=== PATIENT | female | born 1945 | race Caucasian/White ===

== ENCOUNTER 2017-02-08 12:18 | Emergency (ER) | payer MEDICARE, OTHER ==
[2017-02-08 12:28] VITALS: BP 155/79
[2017-02-08] MEDS ORDERED: Nitroglycerin 0.4 MG Tab.SL SL ONE (12:38)
[2017-02-08 13:02] LABS: CHLORIDE,CL 106 mEq/L (98-106); SODIUM,NA 141 mEq/L (136-145)
--- NOTE | 2017-02-08 13:11 | EDM.PDOC ---
ED HISTORY OF PRESENT ILLNESS - General Chief Complaint: Chest Pain Stated Complaint: CP Time Seen by Provider: 02/08/17 12:55 Source of Information: Reports: Patient History Limitations: Reports: No limitations - History of Present Illness INITIAL COMMENTS - FREE TEXT/NARRATIVE: Was at the dentist and was fine when she got there. During the hour that she was there she developed some pain in the left chest that initially only occurred when she took a deep breathe "at the top of the breathe". Now it is more of a constant ache with it worse when she takes that breathe. No SOB with it. Does have some asthma and has a chronic mild cough without production. No edema noted. No G symptoms with it. Symptom Onset Date: 02/08/17 Symptom Onset Time: 11:50 Severity: mild Location, General: Reports: chest Quality: Reports: Dull Worsens with: Reports: Other (Deep breath ) Associated Symptoms (General): Reports: chest pain - Related Data Allergies/ADRs: Allergies Allergy/AdvReac Type Severity Reaction Status Date / Time Sulfa (Sulfonamide Allergy Anaphylactic Verified 02/08/17 12:31 Antibiotics) Shock Home Meds: Home Meds Aspirin 325 mg PO ASDIRECTED PRN 02/08/17 [History] Past Medical History Cardiovascular History: Reports: High cholesterol - Past Surgical History HEENT Surgical History: Reports: Other (see below) Other HEENT Surgeries/Procedures: inner ear surgery surgery x2; 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 GI Surgical History: Reports: Hernia repair/other Female Surgical History: Reports: Hysterectomy Musculoskeletal Surgical History: Reports: Other (see below) Other Musculoskeletal Surgeries/Procedures:: knee surgery s/p skiing accident Social & Family History - Family History Family Medical History: Noncontributory - Tobacco Use Smoking Status *Q: Never Smoker - Caffeine Use Caffeine Use: Reports: Coffee - Recreational Drug Use Recreational Drug Use: No ED ROS GENERAL - Review of Systems Review Of Systems: See Below Constitutional: Denies: fever, chills HEENT: Reports: No symptoms Respiratory: Reports: Other (see HPI) Cardiovascular: Reports: Chest pain GI/Abdominal: Reports: No symptoms : Reports: no symptoms Musculoskeletal: Reports: back pain (strained back last week) Skin: Reports: no symptoms Neurological: Reports: No Symptoms Psychiatric: Reports: No symptoms ED EXAM, GENERAL - Physical Exam Exam: See Below Exam Limited By: No limitations General Appearance: alert, no apparent distress Ears: normal external exam, normal canal, normal TMs Nose: normal inspection Throat/Mouth: Normal inspection, Normal oropharynx, No airway compromise Head: atraumatic, normocephalic Neck: normal inspection, supple, non-tender, full range of motion Respiratory/Chest: no respiratory distress, lungs clear, normal breath sounds Cardiovascular: normal peripheral pulses, regular rate, rhythm, no edema, no murmur GI/Abdominal: normal bowel sounds, soft, non tender Back Exam: normal inspection, full range of motion Extremities: normal inspection, normal range of motion, non-tender, no pedal edema, normal capillary refill Neurological: alert, oriented, normal cognition Skin Exam: Warm, Dry, Intact Course - Vital Signs Last Recorded V/S: Last Vital Signs Temp 98.7 F 02/08/17 12:25 Pulse 95 02/08/17 12:25 Resp 20 02/08/17 12:25 BP 155/79 H 02/08/17 13:00 Pulse Ox 95 02/08/17 12:25 - Orders/Labs/Meds Orders: Active Orders 24 hr Category Date Time Status Chest 2V [CR] Stat Exams 02/08/17 12:28 Taken BASIC METABOLIC PANEL,BMP [CHEM] Stat Lab 02/08/17 12:35 Received CREATINE KINASE,CK [CHEM] Stat Lab 02/08/17 12:35 Received D Dimer [D-DIMER QUANTITATIVE] [COAG] Stat Lab 02/08/17 12:35 Received INR,PT,PROTHROMBIN TIME [COAG] Stat Lab 02/08/17 12:35 Received LACTATE DEHYDROGENASE,LDH [CHEM] Stat Lab 02/08/17 12:35 Received PTT,PARTIAL THROMBOPLSTIN TIME [COAG] Stat Lab 02/08/17 12:35 Received TROPONIN I [CHEM] Stat Lab 02/08/17 12:35 Received Labs: Laboratory Tests 02/08/17 Range/Units 12:35 WBC 6.5 (5.0-10.0) 10^3/uL RBC 4.53 (4.00-5.50) 10^6/uL Hgb 14.3 (12.0-16.0) g/dL Hct 42.2 (37.0-47.0) % MCV 93.2 (82.0-94.0) fL MCH 31.6 (27.0-32.0) pg MCHC 33.9 (33.0-38.0) g/dL RDW Coeff of Ang 12.7 (11.0-15.0) % Plt Count 183 (150-400) 10^3/uL Neut % (Auto) 45.5 (35-85) % Lymph % (Auto) 39.8 (10-55) % [place] % (Auto) 11.7 (0-16) % Eos % (Auto) 2.2 (0-5) % Baso % (Auto) 0.8 (0-3) % Neut # (Auto) 2.96 (1.80-7.00) 10^3/uL Lymph # (Auto) 2.59 (1.00-4.80) 10^3/uL [place] # (Auto) 0.76 (0.00-0.80) 10^3/uL Eos # (Auto) 0.14 (0.00-0.45) 10^3/uL Baso # (Auto) 0.05 10^3/uL Meds: Medications Discontinued Medications Generic Name Dose Route Start Last Admin Trade Name Freq PRN Reason Stop Dose Admin Nitroglycerin 0.4 mg 02/08/17 12:38 02/08/17 13:00 Nitrostat SL 02/08/17 12:39 Not Given ONETIME ONE Departure - Departure Time of Disposition: 13:22 Disposition: Home, Self-Care 01 Condition: good Clinical Impression: Asthma Qualifiers: Asthma severity: mild intermittent Asthma complication type: uncomplicated Qualified Code(s): J45.20 - Mild intermittent asthma, uncomplicated Forms: ED Department Discharge Additional Instructions: Recheck in clinic or ER if any further concerns or changes occur - Problem List & Annotations (1) Asthma SNOMED Code(s): 776616097 Code(s): J45.909 - UNSPECIFIED ASTHMA, UNCOMPLICATED Status: Acute Current Visit: Yes Qualifiers: Asthma severity: mild intermittent Asthma complication type: uncomplicated Qualified Code(s): J45.20 - Mild intermittent asthma, uncomplicated - Problem List Review Problem List Initiated/Reviewed/Updated: Yes
== END 2017-02-08 13:30 | disposition home or self-care (01) ==
LOC: CC.ED 12:18
DX: J45.20 Mild intermittent asthma, uncomplicated (principal); E78.00 Pure hypercholesterolemia, unspecified; Z90.710 Acquired absence of both cervix and uterus; Z88.2 Allergy status to sulfonamides
CPT/HCPCS: 36415; 71020; 80048; 82550; 83615; 84484; 85025; 85379; 85610; 85730; 93005; 93010; 99283; 99285

== ENCOUNTER → 2019-03-15 | Day surgery (SDC) | payer MEDICARE, OTHER ==
[~2019-03-15] MED LIST: Lactated Ringers 1,000 ML IV SCH; Propofol 200 MG/20 ML SDV IV ONE
[2019-03-15 10:57] VITALS: BP 150/51
--- NOTE | 2019-03-18 09:06 | OR ---
DATE OF OPERATION: 03/15/2019 PREOPERATIVE DIAGNOSIS: 1. DYSPEPSIA, CHRONIC GASTROESOPHAGEAL REFLUX DISEASE. 2. ABDOMINAL PAIN WITH ALTERED BOWEL HABITS. POSTOPERATIVE DIAGNOSIS: 1. GASTRITIS, DUODENITIS. 2. SPONTANEOUS GASTROESOPHAGEAL REFLUX DISEASE. 3. CECAL COLITIS. 4. PANDIVERTICULOSIS, MODERATE TO SEVERE. SURGEON: Jorge Rose MD PROCEDURE: 1. ESOPHAGOGASTRODUODENOSCOPY WITH BIOPSIES X6, VAMSI. 2. FULL LENGTH COLONOSCOPY WITH BIOPSIES X3. ANESTHESIA: MAC via PRACTICE MANAGEMENT CONSULTANT. COMPLICATIONS: None. SPECIMEN: 1. Duodenal biopsy x2. 2. Antral biopsy x2. 3. Antral VAMSI. 4. Fundal biopsy x1. 5. EG junction biopsy x1. 6. Ileocecal valve biopsy x2. 7. Terminal ileal biopsy x1. FINDINGS: 1. Full-length esophagogastroduodenoscopy. 2. Moderate and chronic-appearing antral gastritis, duodenitis. 3. Heterotopic gastric tissue, duodenal bulb. 4. Gastroesophageal reflux disease with no obvious distal esophagitis and no Guadarrama's changes. 5. Full-length colonoscopy. 6. Inflammatory changes in ileocecal valve, questionable etiology. 7. Pandiverticulosis, moderate to severe. RECOMMENDATIONS: Medical followup with Dr. Horton, routine colonoscopy in 10 years. INDICATIONS: Ms. Victoria has been having some ongoing issues with dyspepsia and reflux. She also has some left lower quadrant pain and altered bowel habits. Dr. Horton sent her for diagnostic esophagogastroduodenoscopy and colonoscopy. DESCRIPTION OF PROCEDURE: The patient was prepped and draped, placed in the left lateral decubitus position. A lubricated Olympus gastroscope was inserted over a bit, advanced to cricopharyngeus area, and easily intubated in the esophagus. The esophageal lining was benign in its entire course. The Z-line was crisp and sharp. Right at 40 cm, there is some spontaneous reflux. A little bit of inflammatory change at the EG junction around 7 o'clock position. We did do a biopsy of that but no gross or obvious esophagitis, Guadarrama's changes etc. Scope was advanced into the stomach through the pylorus into the second portion of the duodenum. This was benign. The duodenal bulb was inflamed consistent with duodenitis. Biopsy was taken along with a second biopsy at an area of heterotopic gastric tissue. Scope was brought back into the stomach and retroflexed. The upper fundus and cardia were for the most part benign. There is a little bit of inflammatory change to one area of the fundus consistent with maybe some mild gastritis. We did not do a biopsy of that. The patient does have chronic appearing gastritis of the antrum and two biopsies of that along with a CLOtest were obtained without complication. No other polyps, masses, or lesions were seen. Air was suctioned from the stomach. The scope was removed without complication. A lubricated Olympus colonoscope was inserted and easily advanced to the cecum. Right at the cecum along the valve, the patient does have inflammatory changes, unclear etiology. We did intubate into the terminal ileum, did a biopsy of that. Three separate biopsies of the valve were taken as well. The rest of the cecal pouch was benign. Upon withdrawal of the scope, the patient has gonsalves diverticulosis, most severe in the sigmoid and rectosigmoid junction as expected but present all over in the right colon. There were no other inflammatory changes. Throughout the rest of the colon, I could find no polyps, masses, ulcerations, or bleeding sites. No vascular abnormalities or signs of colitis. The rectal vault was benign. Retroflexion of the scope in the rectum showed no anal lesions. Air was suctioned. Scope was removed without complication. CARMEN/PETER /[id number]
== END ==
LOC: CC.SDS 08:35
PROVIDERS: ATTEND Family Medicine
DX: K21.0 Gastro-esophageal reflux disease with esophagitis (principal); K31.89 Other diseases of stomach and duodenum; K29.50 Unspecified chronic gastritis without bleeding; K29.80 Duodenitis without bleeding; K57.30 Diverticulosis of large intestine without perforation or abscess without bleeding; K50.90 Crohn's disease, unspecified, without complications; I10 Essential (primary) hypertension; E78.5 Hyperlipidemia, unspecified; J45.909 Unspecified asthma, uncomplicated; E55.9 Vitamin D deficiency, unspecified; K42.9 Umbilical hernia without obstruction or gangrene; E04.1 Nontoxic single thyroid nodule; M19.90 Unspecified osteoarthritis, unspecified site; Z80.0 Family history of malignant neoplasm of digestive organs; Z88.2 Allergy status to sulfonamides; Z79.899 Other long term (current) drug therapy
CPT/HCPCS: 87081; J2704; J7120

== ENCOUNTER → 2019-05-28 | Day surgery (SDC) | payer MEDICARE, OTHER ==
[~2019-05-28] MED LIST changes: -Lactated Ringers 1,000 ML IV SCH; +Lidocaine 1% 20 ML MDV ONE; -Propofol 200 MG/20 ML SDV IV ONE
[2019-05-28 12:34] VITALS: BP 143/51
== END ==
LOC: CC.SDS 10:18
PROVIDERS: ATTEND Family Medicine
DX: I83.12 Varicose veins of left lower extremity with inflammation (principal); I83.812 Varicose veins of left lower extremity with pain
CPT/HCPCS: 36475

== ENCOUNTER 2020-08-29 17:07 | Emergency (ER) | payer MEDICARE, OTHER ==
[2020-08-29] MEDS ORDERED: Lactated Ringers 1,000 ML IV ONE (17:17)
--- NOTE | 2020-08-29 17:27 | EDM.PDOC ---
ED HPI GENERAL MEDICAL PROBLEM - General Chief Complaint: General Stated Complaint: COVID+. Near Syncope Time Seen by Provider: 08/29/20 17:16 Source of Information: Reports: Patient History Limitations: Reports: No Limitations - History of Present Illness INITIAL COMMENTS - FREE TEXT/NARRATIVE: This patient is a 74 year old female that presents to the ER. Patient reports that about 8 days ago she started having cough, drainage, congestion, headache, fever, body aches, shortness of breath. She reports on the she was tested in [place] and diagnosed with COVID. She reports that she was not seen by her PCP, was prescribed abx and steroids for COVID and her cough. Patient reports that she has been feeling generally weak and generally not that well. She reports feelign pain/congested in her chest with coughing. She reports that today at about 2pm she felt lightheaded with standing and nearly passed out. Patient reports then again just before coming to the hospital going to the bathroom, urinated, then when getting off the toilet, feeling lightheaded, and passed out. She reports her was unable to open the door to the bathroom because she was laying on the floor. Onset: Today Onset Date: 08/21/20 Duration: Other (Today syncope) Severity: Moderate Improves with: Reports: None Worsens with: Reports: None Associated Symptoms: Reports: Cough, cough w sputum, Fever/Chills, Headaches, Loss of Appetite, Malaise, Shortness of Breath, Syncope, Weakness (general). Denies: Confusion, Chest Pain, Diaphoresis, Nausea/Vomiting, Rash, Seizure - Related Data Allergies Allergy/AdvReac Type Severity Reaction Status Date / Time Sulfa (Sulfonamide Allergy Anaphylactic Verified 08/29/20 17:14 Antibiotics) Shock Home Meds: Home Meds Cholecalciferol (Vitamin D3) [Vitamin D3] 6,000 unit PO DAILY 03/12/19 [History] Magnesium Oxide 500 mg PO DAILY 03/12/19 [History] Multivitamin [Multivitamins] 1 each PO DAILY 03/12/19 [History] Selenium 200 mcg PO DAILY 03/12/19 [History] Past Medical History Cardiovascular History: Reports: High Cholesterol - Past Surgical History HEENT Surgical History: Reports: Other (See Below) Other HEENT Surgeries/Procedures: inner ear surgery surgery x2; 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 GI Surgical History: Reports: Hernia Repair/Other Female Surgical History: Reports: Hysterectomy Musculoskeletal Surgical History: Reports: Other (See Below) Other Musculoskeletal Surgeries/Procedures:: knee surgery s/p skiing accident Social & Family History - Family History Family Medical History: No Pertinent Family History - Tobacco Use Tobacco Use Status *Q: Never Tobacco User Second Hand Smoke Exposure: No - Caffeine Use Caffeine Use: Reports: None - Recreational Drug Use Recreational Drug Use: No ED ROS GENERAL - Review of Systems Review Of Systems: See Below Constitutional: Reports: Fever, Chills, Malaise, Weakness (general), Fatigue HEENT: Reports: Rhinitis, Sinus Problem Respiratory: Reports: Shortness of Breath, Pleuritic Chest Pain, Cough, Sputum Cardiovascular: Reports: Lightheadedness, Syncope. Denies: Chest Pain, Dyspnea on Exertion, Edema, Palpitations Endocrine: Reports: No Symptoms GI/Abdominal: Reports: Diarrhea. Denies: Abdominal Pain, Nausea, Vomiting : Reports: No Symptoms Musculoskeletal: Reports: Neck Pain Skin: Reports: No Symptoms Neurological: Reports: Dizziness, Headache, Syncope. Denies: Trouble Speaking, Difficulty Walking, Change in Speech, Gait Disturbance Psychiatric: Reports: No Symptoms Hematologic/Lymphatic: Reports: No Symptoms Immunologic: Reports: No Symptoms ED EXAM, GENERAL - Physical Exam Exam: See Below Exam Limited By: No Limitations General Appearance: Alert, WD/WN, No Apparent Distress Eye Exam: Bilateral Eye: EOMI, Normal Inspection, PERRL Ears: Normal External Exam, Normal Canal, Hearing Grossly Normal, Normal TMs Ear Exam: Bilateral Ear: Auricle Normal, Canal Normal, TM normal Nose: Normal Inspection, Normal Mucosa, No Blood Throat/Mouth: Normal Inspection, Normal Lips, Normal Teeth, Normal Gums, Normal Oropharynx, Normal Voice, No Airway Compromise Head: Atraumatic, Normocephalic Neck: Normal Inspection, Supple, Full Range of Motion, Tender Lateral (bilaterally. ), Other (No step offs. ). No: Tender Midline Respiratory/Chest: No Respiratory Distress, Lungs Clear, Normal Breath Sounds, No Accessory Muscle Use, Chest Non-Tender. No: Respiratory Distress, Decreased Breath Sounds, Crackles, Rales, Rhonchi, Wheezing Cardiovascular: Normal Peripheral Pulses, Regular Rate, Rhythm, No Edema, No Gallop, No JVD, No Murmur, No Rub, Other (Lightheaded with sitting up positional change during exam. ) Peripheral Pulses: 2+: Radial (L), Radial (R), Posterior Tibial (L), Posterior Tibial (R), Dorsalis Pedis (L), Dorsalis Pedis (R) GI/Abdominal: Soft, Non-Tender, No Organomegaly, No Distention, No Mass, Pelvis Stable Back Exam: Normal Inspection, Full Range of Motion. No: CVA Tenderness (L), CVA Tenderness (R), Decreased Range of Motion, Muscle Spasm, Paraspinal Tenderness, Vertebral Tenderness Extremities: Normal Inspection, Normal Range of Motion, Non-Tender, No Pedal Edema, Normal Capillary Refill Neurological: Alert, Oriented, CN II-XII Intact, Normal Cognition, Normal Gait, No Motor/Sensory Deficits, Other (STROKE SCORE 0. GCS 15. ) Psychiatric: Normal Affect, Normal Mood Skin Exam: Warm, Dry, Intact, Normal Color, No Rash Lymphatic: No Adenopathy Course - Vital Signs Last Recorded V/S: Last Vital Signs Temp 96.9 F 08/29/20 17:07 Pulse 85 08/29/20 18:36 Resp 18 08/29/20 18:36 BP 143/81 H 08/29/20 18:36 Pulse Ox 95 08/29/20 18:36 - Orders/Labs/Meds Orders: Active Orders 24 hr Category Date Time Status Orthostatic Vital Signs [RC] ASDIRECTED Care 08/29/20 18:08 Active Cervical Spine wo Cont [CT] Stat Exams 08/29/20 17:16 Taken Chest 2V [CR] Stat Exams 08/29/20 17:16 Taken Head wo Cont [CT] Stat Exams 08/29/20 17:16 Taken CULTURE BLOOD [BC] Stat Lab 08/29/20 17:26 Received CULTURE BLOOD [BC] Stat Lab 08/29/20 17:30 Received Blood Culture x2 Reflex Set [OM.PC] Stat Oth 08/29/20 17:18 Ordered Labs: Laboratory Tests 08/29/20 08/29/20 08/29/20 Range/Units 17:26 17:26 17:26 WBC 8.2 (5.0-10.0) 10^3/uL RBC 4.70 (4.00-5.50) 10^6/uL Hgb 14.5 (12.0-16.0) g/dL Hct 43.3 (37.0-47.0) % MCV 92.1 (82.0-94.0) fL MCH 30.9 (27.0-32.0) pg MCHC 33.5 (33.0-38.0) g/dL RDW Coeff of Ang 13.1 (11.0-15.0) % Plt Count 146 L (150-400) 10^3/uL Neut % (Auto) 77.8 (35-85) % Lymph % (Auto) 11.9 (10-55) % [place] % (Auto) 10.2 (0-16) % Eos % (Auto) 0 (0-5) % Baso % (Auto) 0.1 (0-3) % Neut # (Auto) 6.39 (1.80-7.00) 10^3/uL Lymph # (Auto) 0.98 L (1.00-4.80) 10^3/uL [place] # (Auto) 0.84 H (0.00-0.80) 10^3/uL Eos # (Auto) 0.00 (0.00-0.45) 10^3/uL Baso # (Auto) 0.01 10^3/uL PT 10.6 (9.7-12.3) SEC INR 1.05 (0.92-1.18) APTT 25.2 (23.2-32.3) SEC D-Dimer, Quantitative 1.94 H (0.00-0.50) Sodium 130 L (136-145) mEq/L Potassium 3.9 (3.5-5.0) mEq/L Chloride 97 L (98-106) mEq/L Carbon Dioxide 24 (21-32) mmol/L BUN 26 H (7-18) mg/dL Creatinine 1.1 H (0.6-1.0) mg/dL Est Cr Clr Drug Dosing 43.63 mL/min Estimated GFR (MDRD) 49 L (>=60) mL/min Glucose 124 H (75-99) mg/dL Lactic Acid (0.4-2.0) mmol/L Calcium 8.0 L (8.4-10.1) mg/dL Total Bilirubin 0.6 (0.0-1.0) mg/dL AST 30 (15-37) U/L ALT 37 (12-78) U/L Alkaline Phosphatase 36 L (46-116) U/L Lactate Dehydrogenase 223 H (100-190) U/L Creatine Kinase 68 (21-215) U/L Troponin I < 0.017 (0.00-0.06) ng/mL C-Reactive Protein 4.4 H (0.2-0.8) mg/dL NT-Pro-B Natriuret Pep 590 (0-1000) pg/mL Total Protein 6.2 L (6.4-8.2) g/dL Albumin 3.0 L (3.4-5.0) g/dL 08/29/20 Range/Units 17:26 WBC (5.0-10.0) 10^3/uL RBC (4.00-5.50) 10^6/uL Hgb (12.0-16.0) g/dL Hct (37.0-47.0) % MCV (82.0-94.0) fL MCH (27.0-32.0) pg MCHC (33.0-38.0) g/dL RDW Coeff of Ang (11.0-15.0) % Plt Count (150-400) 10^3/uL Neut % (Auto) (35-85) % Lymph % (Auto) (10-55) % [place] % (Auto) (0-16) % Eos % (Auto) (0-5) % Baso % (Auto) (0-3) % Neut # (Auto) (1.80-7.00) 10^3/uL Lymph # (Auto) (1.00-4.80) 10^3/uL [place] # (Auto) (0.00-0.80) 10^3/uL Eos # (Auto) (0.00-0.45) 10^3/uL Baso # (Auto) 10^3/uL PT (9.7-12.3) SEC INR (0.92-1.18) APTT (23.2-32.3) SEC D-Dimer, Quantitative (0.00-0.50) Sodium (136-145) mEq/L Potassium (3.5-5.0) mEq/L Chloride (98-106) mEq/L Carbon Dioxide (21-32) mmol/L BUN (7-18) mg/dL Creatinine (0.6-1.0) mg/dL Est Cr Clr Drug Dosing mL/min Estimated GFR (MDRD) (>=60) mL/min Glucose (75-99) mg/dL Lactic Acid 1.4 (0.4-2.0) mmol/L Calcium (8.4-10.1) mg/dL Total Bilirubin (0.0-1.0) mg/dL AST (15-37) U/L ALT (12-78) U/L Alkaline Phosphatase (46-116) U/L Lactate Dehydrogenase (100-190) U/L Creatine Kinase (21-215) U/L Troponin I (0.00-0.06) ng/mL C-Reactive Protein (0.2-0.8) mg/dL NT-Pro-B Natriuret Pep (0-1000) pg/mL Total Protein (6.4-8.2) g/dL Albumin (3.4-5.0) g/dL Meds: Medications Discontinued Medications Generic Name Dose Route Start Last Admin Trade Name Rosita PRN Reason Stop Dose Admin Lactated Ringer's 1,000 mls @ 1,000 mls/hr 08/29/20 17:17 08/29/20 17:20 Ringers, Lactated IV 08/29/20 18:16 1,000 mls/hr .BOLUS ONE Administration - Radiology Interpretation Free Text/Narrative:: CXR: Lungs clear Head/Cervical CT: no acute findings CT Results Date: 08/29/20 CT Results Time: 18:10 - Re-Assessments/Exams Free Text/Narrative Re-Assessment/Exam: 08/29/20 18:38 Discussed with patient for about 20 minutes all her results, her COVID viral illness. Patient reports sheis no longer having lightheadedness. She was set up from laying position and had no increase in HR or lightheadedness. She reports she will followup with her PCP this week. Educated when to return to the ER. Voices back understanding. Patient oxygen saturation is 95% RA. No oxygen required. Patient has elevated d-dimer consistent with covid patients, not 5x normal limit, and cxr clear, will not cta chest at this time. Educated about increasing shortness of breath to return to the ER. Departure - Departure Time of Disposition: 18:40 Disposition: Home, Self-Care 01 Condition: Fair Clinical Impression: COVID-19 Syncope Qualifiers: Syncope type: vasovagal syncope Qualified Code(s): R55 - Syncope and collapse - Discharge Information *PRESCRIPTION DRUG MONITORING PROGRAM REVIEWED*: Not Applicable *COPY OF PRESCRIPTION DRUG MONITORING REPORT IN PATIENT JACEK: Not Applicable Instructions: COVID-19 Frequently Asked Questions, Near-Syncope, [id number], COVID-19: How to Protect Yourself and Others - CDC, Syncope, [id number], Prevent the Spread of COVID-19 if You Are Sick - CDC Referrals: PCP,Unknown [Primary Care Provider] - Forms: ED Department Discharge Additional Instructions: Followup with your primary care provider for a recheck this wee Return to the ER for worsening of condition or any emergent concern such as continued passing out, low oxygen levels, increased shortness of breath, or any other concerns Increase fluids Change positions nice and slow Do not sit up to fast Sepsis Event Note (ED) - Evaluation Sepsis Screening Result: No Definite Risk - Focused Exam Vital Signs: Vital Signs Temp Pulse Resp BP Pulse Ox 08/29/20 18:36 85 18 143/81 H 95 08/29/20 17:07 96.9 F 88 18 150/68 H 92 L - My Orders Last 24 Hours: My Active Orders 08/29/20 17:16 Cervical Spine wo Cont [CT] Stat Chest 2V [CR] Stat Head wo Cont [CT] Stat 08/29/20 17:18 Blood Culture x2 Reflex Set [OM.PC] Stat 08/29/20 17:26 CULTURE BLOOD [BC] Stat 08/29/20 17:30 CULTURE BLOOD [BC] Stat 08/29/20 18:08 Orthostatic Vital Signs [RC] ASDIRECTED - Assessment/Plan Last 24 Hours: My Active Orders 08/29/20 17:16 Cervical Spine wo Cont [CT] Stat Chest 2V [CR] Stat Head wo Cont [CT] Stat 08/29/20 17:18 Blood Culture x2 Reflex Set [OM.PC] Stat 08/29/20 17:26 CULTURE BLOOD [BC] Stat 08/29/20 17:30 CULTURE BLOOD [BC] Stat 08/29/20 18:08 Orthostatic Vital Signs [RC] ASDIRECTED Plan: PLEASE SEE RN NOTE FOR PFSH
[2020-08-29 17:57] LABS: CHLORIDE,CL 97 mEq/L (98-106); SODIUM,NA 130 mEq/L (136-145)
[2020-08-29 18:01] LABS: PTT,PARTIAL THROMBOPLSTIN TIME 25.2 SEC (23.2-32.3)
[2020-08-29 18:51] VITALS: BP 143/81; PULSE 85
== END 2020-08-29 19:01 | disposition home or self-care (01) ==
LOC: CC.ED 17:07
DX: U07.1 COVID-19 (principal); R55 Syncope and collapse; Z88.2 Allergy status to sulfonamides; Z79.899 Other long term (current) drug therapy; R06.02 Shortness of breath
CPT/HCPCS: 36415; 70450; 71046; 72125; 80053; 82550; 83605; 83615; 83880; 84484; 85025; 85379; 85610; 85730; 86140; 87040; 93005; 93010; 99284; 99285-25; J7120

== ENCOUNTER 2021-02-02 23:19 | Emergency (ER) | payer MEDICARE, OTHER ==
[2021-02-02 23:49] VITALS: BP 135/59; PULSE 84
--- NOTE | 2021-02-03 00:21 | EDM.PDOC ---
ED HPI GENERAL MEDICAL PROBLEM - General Chief Complaint: General Stated Complaint: throat/stomach burning Time Seen by Provider: 02/02/21 23:27 Source of Information: Reports: Patient History Limitations: Reports: No Limitations - History of Present Illness INITIAL COMMENTS - FREE TEXT/NARRATIVE: Velia is a 75 year old female who presents to the ED with complaints of burning in her throat and stomach. She states she was drinking her prep for colonoscopy around 1800hrs and around 2100 this evening she started feeling a burning sensation in her stomach. She admits she was having reflux and made her vomit. States the pain in her stomach was a burning sensation and rated it a 5/10. Denies SOB, chest pain, cough, fevers, or diarrhea at this time. Patient resting comfortably on stretcher. Abdomen Pain Score (Numeric/FACES): 5 - Related Data Allergies Allergy/AdvReac Type Severity Reaction Status Date / Time Sulfa (Sulfonamide Allergy Anaphylactic Verified 02/02/21 23:27 Antibiotics) Shock Home Meds: Home Meds Cholecalciferol (Vitamin D3) [Vitamin D3] 6,000 unit PO DAILY 03/12/19 [History] Magnesium Oxide 500 mg PO DAILY 03/12/19 [History] Multivitamin [Multivitamins] 1 each PO DAILY 03/12/19 [History] Selenium 200 mcg PO DAILY 03/12/19 [History] Ascorbic Acid [Vitamin C] 1 tab PO DAILY 02/02/21 [History] Levothyroxine 0.5 tab PO DAILY 02/02/21 [History] Vitamin D3/Vitamin K2 (Mk4) [K2 Plus D3 Tablet] 1 tab PO DAILY 02/02/21 [History] Zinc 1 tab PO DAILY 02/02/21 [History] Past Medical History Cardiovascular History: Reports: High Cholesterol Endocrine/Metabolic History: Reports: Hypothyroidism - Infectious Disease History Infectious Disease History: Reports: Chicken Pox, Measles, Mumps - Past Surgical History HEENT Surgical History: Reports: Other (See Below) Other HEENT Surgeries/Procedures: inner ear surgery surgery x2; 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 ED EXAM, GENERAL - Physical Exam Exam: See Below Exam Limited By: No Limitations General Appearance: Alert, WD/WN, No Apparent Distress Throat/Mouth: Normal Inspection, Normal Lips, Normal Gums, Normal Oropharynx, Normal Voice, No Airway Compromise Head: Atraumatic, Normocephalic Neck: Normal Inspection, Supple Respiratory/Chest: No Respiratory Distress, Lungs Clear, Normal Breath Sounds, No Accessory Muscle Use Cardiovascular: Regular Rate, Rhythm, No Murmur GI/Abdominal: Normal Bowel Sounds, Tender (mild epigastric) Extremities: Normal Inspection, No Pedal Edema Neurological: Alert, Oriented Psychiatric: Normal Affect, Normal Mood Skin Exam: Warm, Dry, Intact, Normal Color, No Rash Course - Vital Signs Last Recorded V/S: Last Vital Signs Temp 96.4 F L 02/02/21 23:24 Pulse 84 02/02/21 23:48 Resp 16 02/02/21 23:48 BP 135/59 L 02/02/21 23:48 Pulse Ox 96 02/02/21 23:48 Departure - Departure Time of Disposition: 00:22 Disposition: Home, Self-Care 01 Clinical Impression: Acid reflux Qualifiers: Esophagitis presence: with esophagitis Esophagitis bleeding: without hemorrhage Qualified Code(s): K21.00 - Gastro-esophageal reflux disease with esophagitis, without bleeding - Discharge Information *PRESCRIPTION DRUG MONITORING PROGRAM REVIEWED*: No *COPY OF PRESCRIPTION DRUG MONITORING REPORT IN PATIENT JACEK: No Instructions: Gastroesophageal Reflux Disease, Adult, [id number] Referrals: Hal Horton MD [Primary Care Provider] - Additional Instructions: 1) Return if symptoms return or worsen 2) Recommend sleeping tonight with elevating head 3) May call with any questions [phone] 4) Do not take Dulcolax tonight. Sepsis Event Note (ED) - Evaluation Sepsis Screening Result: No Definite Risk - Focused Exam Vital Signs: Vital Signs Temp Pulse Resp BP Pulse Ox 02/02/21 23:48 84 16 135/59 L 96 02/02/21 23:24 96.4 F L 110 H 16 168/78 H 97 - Problem List & Annotations (1) Acid reflux SNOMED Code(s): 559786849 Code(s): K21.9 - GASTRO-ESOPHAGEAL REFLUX DISEASE WITHOUT ESOPHAGITIS Stat us: Acute Current Visit: Yes Qualifiers: Esophagitis presence: with esophagitis Esophagitis bleeding: without hemorrhage Qualified Code(s): K21.00 - Gastro-esophageal reflux disease with esophagitis, without bleeding - Assessment/Plan Plan: Alta was doing well while in the ED. She was able to drink water and symptoms significantly improved. States she still has mild epigastric tenderness. No further vomiting. Is able to drink fluids without difficulty. Will discharge home at this time. No further work up warranted.
== END 2021-02-03 00:33 | disposition home or self-care (01) ==
LOC: CC.ED 23:19
DX: K21.00 Gastro-esophageal reflux disease with esophagitis, without bleeding (principal); Z88.2 Allergy status to sulfonamides; E03.9 Hypothyroidism, unspecified; Z79.899 Other long term (current) drug therapy
CPT/HCPCS: 99283

== ENCOUNTER 2021-03-16 04:09 | Emergency (ER) | payer MEDICARE, OTHER ==
--- NOTE | 2021-03-16 04:48 | EDM.PDOC ---
ED HPI GENERAL MEDICAL PROBLEM - General Chief Complaint: General Stated Complaint: "passing clots" Time Seen by Provider: 03/16/21 04:40 Source of Information: Reports: Patient History Limitations: Reports: No Limitations - History of Present Illness INITIAL COMMENTS - FREE TEXT/NARRATIVE: Alta is a 75 yo female who presents to the ED with c/o bloody stools. Reports she had a bowel resection [address] Gonzalez. She reports she was having bloody stools initially, up until this past Monday. Reports her bowel movements returned to normal and then this evening around 10 pm she began having bloody stools again. Reports she has been passing bloody clots every 5-10 minutes since that time. Does report she has mild pain in LLQ now, which she did not have prior to onset of bloody stools again. Rates pain 2/10 at rest. Denies any nausea, vomiting, fever, chills, chest pain, shortness of breath. Does report mild dizziness but is otherwise feeling well. She reports she did call her surgeon, Dr. Gonzalez, who recommended she be evaluated. Onset Date: 03/15/21 Onset Time: 23:00 Duration: Intermittent Location: Reports: Abdomen (LLQ) Quality: Reports: Ache Severity: Mild Worsens with: Reports: Movement Associated Symptoms: Denies: Confusion, Chest Pain, Cough, cough w sputum, Diaphoresis, Fever/Chills, Headaches, Loss of Appetite, Malaise, Nausea/Vomitin g, Rash, Seizure, Shortness of Breath, Syncope, Weakness Left Lower Abdomen Pain Score (Numeric/FACES): 6 - Related Data Allergies Allergy/AdvReac Type Severity Reaction Status Date / Time Sulfa (Sulfonamide Allergy Anaphylactic Verified 03/16/21 04:18 Antibiotics) Shock Home Meds: Home Meds Magnesium Oxide 500 mg PO DAILY 03/12/19 [History] Multivitamin [Multivitamins] 1 each PO DAILY 03/12/19 [History] Selenium 200 mcg PO DAILY 03/12/19 [History] Ascorbic Acid [Vitamin C] 1 tab PO DAILY 02/02/21 [History] Levothyroxine 0.5 tab PO DAILY 02/02/21 [History] Vitamin D3/Vitamin K2 (Mk4) [K2 Plus D3 Tablet] 1 tab PO DAILY 02/02/21 [History] Zinc 1 tab PO DAILY 02/02/21 [History] Past Medical History Cardiovascular History: Reports: High Cholesterol Endocrine/Metabolic History: Reports: Hypothyroidism - Infectious Disease History Infectious Disease History: Reports: Chicken Pox, Measles, Mumps - Past Surgical History HEENT Surgical History: Reports: Other (See Below) Other HEENT Surgeries/Procedures: inner ear surgery surgery x2; 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 GI Surgical History: Reports: Hernia Repair/Other, Other (See Below) Other GI Surgeries/Procedures: colon resection Female Surgical History: Reports: Hysterectomy Musculoskeletal Surgical History: Reports: Other (See Below) Other Musculoskeletal Surgeries/Procedures:: knee surgery s/p skiing accident Social & Family History - Family History Family Medical History: No Pertinent Family History - Tobacco Use Tobacco Use Status *Q: Never Tobacco User - Caffeine Use Caffeine Use: Reports: None - Recreational Drug Use Recreational Drug Use: No ED ROS GENERAL - Review of Systems Review Of Systems: Comprehensive ROS is negative, except as noted in HPI. ED EXAM, GENERAL - Physical Exam Exam: See Below Exam Limited By: No Limitations General Appearance: Alert, WD/WN, No Apparent Distress Throat/Mouth: Normal Inspection, Normal Lips, Normal Teeth, Normal Gums, Normal Oropharynx, Normal Voice, No Airway Compromise Head: Atraumatic, Normocephalic Neck: Normal Inspection, Supple, Non-Tender, Full Range of Motion Respiratory/Chest: No Respiratory Distress, Lungs Clear, Normal Breath Sounds, No Accessory Muscle Use, Chest Non-Tender Cardiovascular: Normal Peripheral Pulses, Regular Rate, Rhythm, No Gallop, No JVD, No Murmur, No Rub Peripheral Pulses: 2+: Radial (L), Radial (R), Dorsalis Pedis (L), Dorsalis Pedis (R) GI/Abdominal: Normal Bowel Sounds, Soft, No Distention, Tender (mild tenderness LLQ), Other (trocar sites x4 across upper abdomen, incision to lower abdomen, dermabonded, all CDI with surrounding ecchymosis) Back Exam: Normal Inspection, Full Range of Motion, NT Extremities: Normal Inspection, Normal Range of Motion, Normal Capillary Refill, Pedal Edema (trace) Neurological: Alert, Oriented, CN II-XII Intact, Normal Cognition, Normal Gait, Normal Reflexes, No Motor/Sensory Deficits Psychiatric: Normal Affect, Normal Mood Skin Exam: Wound/Incision (4 trocar sites to upper abdomen, midline lower incision, all CDI with dermabond, ecchymosis surrounding) Course - Vital Signs Last Recorded V/S: Last Vital Signs Temp 97.1 F 03/16/21 04:11 Pulse 82 03/16/21 05:12 Resp 18 03/16/21 05:12 BP 138/53 L 03/16/21 05:12 Pulse Ox 97 03/16/21 05:12 - Orders/Labs/Meds Labs: Laboratory Tests 03/16/21 03/16/21 Range/Units 04:40 04:40 WBC 10.0 (4.0-11.0) 10^3/uL RBC 3.51 L (4.00-5.50) x10^6/uL Hgb 11.0 L (12.0-16.0) g/dL Hct 33.2 L (37.0-47.0) % MCV 94.6 (83.0-97.0) fL MCH 31.3 (27.0-32.0) pg MCHC 33.1 (32.0-36.0) g/dL RDW Coeff of Ang 13.8 (11.0-15.0) % Plt Count 289 (150-400) 10^3/uL Immature Gran % (Auto) 0.8 (0.0-4.9) % Neut % (Auto) 57.4 (41-71) % Lymph % (Auto) 29.1 (24-44) % [place] % (Auto) 9.7 (0-10) % Eos % (Auto) 2.6 (0-6) % Baso % (Auto) 0.4 (0-1) % Neut # (Auto) 5.75 (1.80-8.00) x10^3/uL Lymph # (Auto) 2.92 (0.60-5.00) 10^3/uL [place] # (Auto) 0.97 (0.00-1.50) 10^3/uL Eos # (Auto) 0.26 (0.00-1.50) 10^3/uL Baso # (Auto) 0.04 (0.00-0.50) 10^3/uL Immature Gran # (Auto) 0.08 (0.00-0.49) 10^3/uL Sodium 143 (136-145) mEq/L Potassium 3.9 (3.5-5.0) mEq/L Chloride 103 (98-106) mEq/L Carbon Dioxide 28 (21-32) mmol/L BUN 11 D (7-18) mg/dL Creatinine 1.0 (0.6-1.0) mg/dL Est Cr Clr Drug Dosing 47.27 mL/min Estimated GFR (MDRD) 54 L (>=60) mL/min Glucose 129 H (75-99) mg/dL Calcium 9.2 (8.4-10.1) mg/dL Total Bilirubin 0.4 (0.0-1.0) mg/dL AST 19 (15-37) U/L ALT 33 (12-78) U/L Alkaline Phosphatase 55 (46-116) U/L C-Reactive Protein 1.2 H (0.2-0.8) mg/dL Total Protein 6.5 (6.4-8.2) g/dL Albumin 3.4 (3.4-5.0) g/dL Meds: Medications Discontinued Medications Generic Name Dose Route Start Last Admin Trade Name Freq PRN Reason Stop Dose Admin Ondansetron HCl 4 mg 03/16/21 06:13 Ondansetron 4 Mg/2 Ml Sdv IVPUSH 03/16/21 06:14 NOW STA - Re-Assessments/Exams Free Text/Narrative Re-Assessment/Exam: 03/16/21 05:[address] Gonzalez, general surgeon at [facility], who recommends transfer to [place]. Departure - Departure Time of Disposition: 05:24 Disposition: DC/Tfer to Acute Hospital 02 Condition: Fair Clinical Impression: Status post small bowel resection, Hematochezia - Discharge Information *PRESCRIPTION DRUG MONITORING PROGRAM REVIEWED*: Not Applicable *COPY OF PRESCRIPTION DRUG MONITORING REPORT IN PATIENT JACEK: Not Applicable Referrals: PCP,Unknown [Ordering Only Provider] - Forms: ED Department Discharge Sepsis Event Note (ED) - Evaluation Sepsis Screening Result: No Definite Risk - Focused Exam Vital Signs: Vital Signs Temp Pulse Resp BP Pulse Ox 03/16/21 05:12 82 18 138/53 L 97 03/16/21 05:00 88 20 164/61 H 96 03/16/21 04:11 97.1 F 109 H 20 182/91 H 96 - Problem List & Annotations (1) Status post small bowel resection SNOMED Code(s): 495171034641853, 465951686, [id number] Code(s): Z90.49 - ACQUIRED ABSENCE OF OTHER SPECIFIED PARTS OF DIGESTIVE TRACT Status: Acute (2) Hematochezia SNOMED Code(s): 153993992 Code(s): K92.1 - MELENA Status: Acute - Assessment/Plan Assessment:: S/P Bowel Resection Hematochezia, probable bleeding from anastomosis Plan: 75 yo female presents to the ED with c/o bloody stools. She is 6 days status post sigmoid colon resection. Reports bowel movements had returned to normal and now she has started passing bright red blood again this evening. She reports she has been passing blood/loose stool every 5-10 minutes since 10-11pm last evening. Does report mild dizziness as well as achy pain in LLQ of abdomen. Hemoglobin stable at 11. BP is normotensive. Consulted with Dr. Gonzalez, general surgeon at [facility], who recommends transfer due to concerns of bleeding at anastomosis site. Patient will be transferred via ALS to [facility]. Discussed risks and benefits of transfer with patient. Risks of transfer include worsening of condition, bleeding out, , MVA enroute. Benefits of transfer include transfer to higher level of care with surgical capabilities. Risks of nontransfer include worsening of condition, . Benefits of nontransfer include convenience. Patient verbalized understanding and was agreeable with transfer. She was discharged from facility in stable condition.
[2021-03-16 05:27] VITALS: BP 138/53; PULSE 82
[2021-03-16] MEDS ORDERED: Ondansetron 4 MG/2 ML SDV IVPUSH STA (06:13)
== END 2021-03-16 07:15 ==
LOC: CC.ED 04:09
DX: K92.1 Melena (principal); E03.9 Hypothyroidism, unspecified; Z79.899 Other long term (current) drug therapy; Z88.2 Allergy status to sulfonamides; Z90.49 Acquired absence of other specified parts of digestive tract
CPT/HCPCS: 36415; 80053; 82272; 85025; 86140; 99284